=== PATIENT | male | born 1970 | race Caucasian/White ===

== ENCOUNTER 2019-05-25 11:50 | Emergency (ER) | payer BC ==
[~2019-05-25] VITALS: Ht 180.3 cm; Wt 72.6 kg
[2019-05-25 11:54] VITALS: BP 117/63
--- NOTE | 2019-05-25 11:59 | NUR ---
ED Nurse Note: PT CAME IN FOR SUTURE REMOVAL ON HIS LEFT EYEBROW. DENIES ANY PAIN. NO SIGNS OF INFECTION. AAO X4, AMBULATORY.
--- NOTE | 2019-05-25 12:20 | NUR ---
discharged home with instruction to follow up with pmd
[2019-05-25 12:46] VITALS: BP 117/63
--- NOTE | 2019-05-25 13:34 | Emergency Room Report ---
History of Present Illness General Chief Complaint: Wound Recheck/Suture Removal Source: Patient Present Illness HPI 48-year-old male who presents ED for evaluation. Here for suture removal. States he had 2 sutures placed in his left jew near his left eyebrow 5 days ago. Is here for suture removal. States he feels well. Denies any pain. Denies any redness or discharge. No other aggravating relieving factors. Denies any other associated symptoms Allergies: Coded Allergies: PENICILLINS (Verified Allergy, Unknown, 05/25/19) Patient History Past Medical History: none Past Surgical History: none Pertinent Family History: none Social History: Denies: smoking, alcohol use, drug use Immunizations: UTD Reviewed Nursing Documentation: PMH: Agreed; PSxH: Agreed Nursing Documentation-PMH Past Medical History: No Stated History Review of Systems All Other Systems: negative except mentioned in HPI Physical Exam Vital Signs Date Time Temp Pulse Resp B/P (MAP) Pulse Ox O2 Delivery O2 Flow Rate FiO2 05/25/19 11:54 98.1 72 20 117/63 96 Room Air Sp02 EP Interpretation: reviewed, normal General Appearance: no apparent distress, alert, GCS 15, non-toxic Head: normocephalic Eyes: bilateral eye normal inspection, bilateral eye PERRL ENT: normal ENT inspection Neck: normal inspection Respiratory: normal inspection Cardiovascular #1: normal inspection Gastrointestinal: normal inspection Rectal: deferred Genitourinary: no CVA tenderness Musculoskeletal: normal inspection Neurologic: alert, motor strength/tone normal, oriented x3, sensory intact, responsive, speech normal Psychiatric: normal inspection Skin: other - suture adjacent to L eyebrow. wound healing. C/D/I. no erythema/ induration Lymphatic: normal inspection Medical Decision Making Diagnostic Impression: Primary Impression: Encounter for removal of sutures ER Course Patient presents to the emergency department today for suture removal. patient' s wound appears well-healed, and sutures are ready to be removed today. Using sterile technique the sutures were removed patient tolerated procedure well without any difficulty. Patient was given advice in how to care for the wound patient is advised followup with his private care doctor in 2-3 days and return to emergency room for any worsening conditions as needed Last Vital Signs Date Time Temp Pulse Resp B/P (MAP) Pulse Ox O2 Delivery O2 Flow Rate FiO2 05/25/19 12:46 98.1 72 20 117/63 96 Room Air Status: improved Disposition: HOME, SELF-CARE Condition: Stable Scripts No Active Prescriptions or Reported Meds Referrals: NON PHYSICIAN (PCP) Patient Instructions: Suture Removal, Care After Bradley Borges MD May 25, 2019 13:34
== END 2019-05-25 12:30 | disposition home or self-care (01) ==
LOC: EMR 12:15
DX: Z48.02 Encounter for removal of sutures (principal); Z88.0 Allergy status to penicillin
CPT/HCPCS: 99281